=== PATIENT | female | born 1960 | race African-American/Black ===

== ENCOUNTER 2017-03-12 13:01 | Emergency (ER) | payer OTHER ==
[~2017-03-12] VITALS: Ht 152.4 cm; Wt 63.5 kg
[~2017-03-12 13:01] MED LIST: AMLO10TA2 PO; HYDR-2869 PO; LINA5TAB4 PO; LISI-334 PO; METF500T4 PO; METO10TA81 PO; METO50TA2 PO; OMEP20CA9 PO; ONDA4TAB10 SL
[2017-03-12] MEDS ORDERED: IV NORMAL SALINE 1000ML BAG 1,000 ML IV ONE ×2 (13:45)
[2017-03-12] MEDS ORDERED: HALOPERIDOL LACTATE 5 MG/ML VIAL. IVP ONE (13:45)
[2017-03-12 13:48] LABS: BASO # 0.1 x10^3/uL (0.0-0.2); BASO % 1 % (0-3); EOS % 0 % (0-3); HEMATOCRIT 40.7 % (36.0-47.0); LYMPH # 2.3 x10^3/uL (1.0-4.8); LYMPH % 19 % (24-48); MEAN CORPUSCULAR HEMOGLOBIN 30 pg (25-35); MEAN CORPUSCULAR HGB CONC 34 g/dL (31-37); MEAN CORPUSCULAR VOLUME 87 fL (79-100); MONO % 6 % (0-9); NEUT % 74 % (31-73); PLATELET COUNT 317 x10^3/uL (140-400); RED BLOOD COUNT 4.65 x10^6/uL (3.50-5.40); RED CELL DISTRIBUTION WIDTH 14.4 % (11.5-14.5); WHITE BLOOD COUNT 12.3 x10^3/uL (4.0-11.0)
[2017-03-12 14:06] LABS: CALCIUM 9.8 mg/dL (8.5-10.1); CREATININE 1.1 mg/dL (0.6-1.0); GFR 61.9; POTASSIUM 3.2 mmol/L (3.5-5.1)
[2017-03-12 14:10] LABS: ALBUMIN 4.1 g/dL (3.4-5.0); ALBUMIN/GLOBULIN RATIO 0.8 (1.0-1.7); TOTAL BILIRUBIN 0.5 mg/dL (0.2-1.0); TOTAL PROTEIN 9.1 g/dL (6.4-8.2)
--- NOTE | 2017-03-12 14:34 | ED.ADGEN ---
Past Medical History Past Medical History: Diabetes-Type II, Hypertension, Other Additional Past Medical Histor: gatritis, gastroporesis Past Surgical History: Hysterectomy Alcohol Use: Occasionally Drug Use: Marijuana Adult General Chief Complaint Chief Complaint: ABDOMINAL PAIN HPI HPI Patient is a 56 year old with history of chronic intermittent abdominal pain with vomiting with diagnosis of gastroparesis and adult onset diabetes who presents with intermittent upper abdominal pain with vomiting for the past several days. Patient is evaluated for this condition yesterday at [facility] on the [place] emergency department. She states she was given fluids, nausea medication prescribed nausea medication which she has not yet had a chance to fill. She reports persistent epigastric pain and nausea and occasional vomiting and inability to tolerate any oral intake including medications. Denies dizziness lightheadedness, chest pain shortness of breath, bloody or bilious emesis hematemesis, constipation or diarrhea. No flank pain and hematuria dysuria or urinary frequency urgency. No fever chills or sweats. No other acute symptoms or complaints. Patient states her sugars have been running in the 400 range. Patient states she does not have a GI doctor. Review of Systems Review of Systems ROS as per HPI. Current Medications Current Medications Current Medications Medications (Trade) Dose Ordered Sig/Mark Start Time Stop Time Status Last Admin Dose Admin Haloperidol Lactate (Haldol) 2.5 mg 1X ONCE 03/12/17 13:45 03/12/17 13:46 DC 03/12/17 13:58 2.5 MG Sodium Chloride 1,000 ml @ 1,000 mls/hr 1X ONCE 03/12/17 13:45 03/12/17 14:44 DC 03/12/17 15:14 1,000 MLS/HR Allergies Allergies Allergies Coded Allergies Type Severity Reaction Last Updated Verified No Known Drug Allergies 04/08/16 No Physical Exam Physical Exam Constitutional: Well developed, anxious, moderate discomfort secondary to pain HENT: Normocephalic, atraumatic, bilateral external ears normal, oropharynx moist, no oral exudates, nose normal. Eyes: PERRL. Neck: Normal range of motion, supple. Cardiovascular:Heart rate regular rhythm. Lungs & Thorax: Bilateral breath sounds clear to auscultation. Abdomen: Bowel sounds normal, soft, no tenderness. Skin: Warm, dry. Back: No tenderness. Extremities: No tenderness. Neurologic: Alert and oriented X 3, normal motor function, normal sensory function, no focal deficits noted. Psychologic: Affect, anxious. Current Patient Data Vital Signs Vital Signs Date Time Temp Pulse Resp B/P (MAP) Pulse Ox O2 Delivery O2 Flow Rate FiO2 03/12/17 16:00 102 20 200/95 (130) 96 Room Air 03/12/17 13:15 98.6 98.6 Lab Values Laboratory Tests Test 03/12/17 13:35 03/12/17 16:15 White Blood Count 12.3 x10^3/uL (4.0-11.0) H Red Blood Count 4.65 x10^6/uL (3.50-5.40) Hemoglobin 14.0 g/dL (12.0-15.5) Hematocrit 40.7 % (36.0-47.0) Mean Corpuscular Volume 87 fL (79-100) Mean Corpuscular Hemoglobin 30 pg (25-35) Mean Corpuscular Hemoglobin Concent 34 g/dL (31-37) Red Cell Distribution Width 14.4 % (11.5-14.5) Platelet Count 317 x10^3/uL (140-400) Neutrophils (%) (Auto) 74 % (31-73) H Lymphocytes (%) (Auto) 19 % (24-48) L Monocytes (%) (Auto) 6 % (0-9) Eosinophils (%) (Auto) 0 % (0-3) Basophils (%) (Auto) 1 % (0-3) Neutrophils # (Auto) 9.1 x10^3uL (1.8-7.7) H Lymphocytes # (Auto) 2.3 x10^3/uL (1.0-4.8) Monocytes # (Auto) 0.7 x10^3/uL (0.0-1.1) Eosinophils # (Auto) 0.0 x10^3/uL (0.0-0.7) Basophils # (Auto) 0.1 x10^3/uL (0.0-0.2) Sodium Level 137 mmol/L (136-145) Potassium Level 3.2 mmol/L (3.5-5.1) L Chloride Level 94 mmol/L (98-107) L Carbon Dioxide Level 31 mmol/L (21-32) Anion Gap 12 (6-14) Blood Urea Nitrogen 22 mg/dL (7-20) H Creatinine 1.1 mg/dL (0.6-1.0) H Estimated GFR (Cockcroft-Gault) 61.9 BUN/Creatinine Ratio 20 (6-20) Glucose Level 268 mg/dL (70-99) H Calcium Level 9.8 mg/dL (8.5-10.1) Total Bilirubin 0.5 mg/dL (0.2-1.0) Aspartate Amino Transferase (AST) 18 U/L (15-37) Alanine Aminotransferase (ALT) 26 U/L (14-59) Alkaline Phosphatase 140 U/L (46-116) H Total Protein 9.1 g/dL (6.4-8.2) H Albumin 4.1 g/dL (3.4-5.0) Albumin/Globulin Ratio 0.8 (1.0-1.7) L Lipase 69 U/L (73-393) L Urine Collection Type Void Urine Color Yellow Urine Clarity Cloudy Urine pH 7.0 Urine Specific Mather 1.020 Urine Protein 100 mg/dL (NEG-TRACE) Urine Glucose (UA) 250 mg/dL (NEG) Urine Ketones (Stick) 40 mg/dL (NEG) Urine Blood Negative (NEG) Urine Nitrite Negative (NEG) Urine Bilirubin Negative (NEG) Urine Urobilinogen Dipstick 0.2 mg/dL (0.2 mg/dL) Urine Leukocyte Esterase Small (NEG) Urine RBC Occ /HPF (0-2) Urine WBC 1-4 /HPF (0-4) Urine Squamous Epithelial Cells Mod /LPF Urine Bacteria Moderate /HPF (0-FEW) Urine Hyaline Casts Occasional /HPF Urine Mucus Mod /LPF Laboratory Tests 03/12/17 13:35 Laboratory Tests 03/12/17 13:35 EKG EKG [] Radiology/Procedures Radiology/Procedures [] Course & Med Decision Making Course & Med Decision Making Pertinent Labs and Imaging studies reviewed. (See chart for details) [Nausea vomiting and abdominal pain improved with treatment. Patient feels much better and is comfortable with discharge home. Patient has nausea medication at home. She is instructed follow-up with her PCP and GI specialist.] Dragon Disclaimer Dragon Disclaimer This electronic medical record was generated, in whole or in part, using a voice recognition dictation system. DERREK NEAL DO Mar 12, 2017 14:34
[2017-03-12 16:00] VITALS: BP 200/95
[2017-03-12 16:24] LABS: BILIRUBIN,URINE NEGATIVE (NEG); GLUCOSE,URINE 250 mg/dL (NEG); NITRITE,URINE NEGATIVE (NEG); PROTEIN,URINE 100 mg/dL (NEG-TRACE); UROBILINOGEN,URINE 0.2 mg/dL (0.2 mg/dL)
[2017-03-12 16:34] LABS: BACTERIA,URINE MODERATE /HPF (0-FEW); RBC,URINE OCC /HPF (0-2); SQUAMOUS EPITHELIAL CELL,UR MOD /LPF
== END 2017-03-12 17:42 | disposition home or self-care (01) ==
LOC: ER 13:01
DX: R11.2 Nausea with vomiting, unspecified (principal); E11.9 Type 2 diabetes mellitus without complications; I10 Essential (primary) hypertension; Z90.710 Acquired absence of both cervix and uterus; Z87.19 Personal history of other diseases of the digestive system; F12.10 Cannabis abuse, uncomplicated
CPT/HCPCS: 36415; 80053; 81001; 83690; 85027; 87086; 96361; 96374; 99284; J1630; J7030